=== PATIENT | female | born 1965 | race African-American/Black ===

== ENCOUNTER 2019-12-17 17:42 | Inpatient (IN) ==
[2019-12-17] MEDS ORDERED: AZITHROMYCIN INJ 500 MG in SODIUM CHLORIDE 0.9% 250 ML IV STA (18:19)
[2019-12-17] MEDS ORDERED: methylPREDNISolone SOD SUC 125 MG/2 ML VIAL IV STA (18:19)
[2019-12-17] MEDS ORDERED: ONDANSETRON 4 MG/2 ML VIAL IV STA (18:19)
[2019-12-17] MEDS ORDERED: ALBUTEROL NEB SOLN 5 MG/ML 20 ML/BOTTLE CONT NEB SCH (18:30)
[2019-12-17 18:59] LABS: ABG Base Excess 9.5 MMOL/L (-2.5-2.5); ABG HCO3 31.4 MMOL/L (20-26); ABG Oxygen Saturation 27.5 % (95-100); ABG PH 7.351 (7.35-7.45); ABG TCO2 34.4 MMOL/L (23-27)
[2019-12-17 19:00] LABS: Basophils # 0.1 10*3/uL (0.0-0.2); Basophils % 0.4 % (0.0-0.8); Eosinophils # 0.1 10*3/uL (0.0-0.87); Eosinophils % 0.4 % (0.00-10.9); Hematocrit 44.8 VOL% (35.7-47.0); Hemoglobin 14.2 GM/DL (12.0-16.0); Immature Granulocytes % 1.1 %; Immature Granulocytes Absolute 0.15 #; Lymphocytes # 1.9 10*3/uL (1.4-4.0); Lymphocytes % 13.7 % (21.3-54.2); Mean Corpuscular HGB Conc 31.7 GM/DL (32-36); Mean Corpuscular Volume 109.3 FL (87-102); Mean Platelet Volume 10.1 FL (9.6-12.0); Monocytes % 7.7 % (1.7-12.7); Neutrophils % 76.7 % (38.7-73.9); Platelet Count 232 T/CUMM (130-400); Red Cell Distribution Width 14.7 % (9.3-17.3); White Blood Count 13.8 T/CUMM (4-12)
[2019-12-17] MEDS ORDERED: cefTRIAXone 1,000 MG in SODIUM CHLORIDE 0.9% 100 ML IV STA (19:04)
[2019-12-17] MEDS ORDERED: FUROSEMIDE 40 MG/4 ML VIAL IV STA (19:04)
[2019-12-17 19:24] LABS: PT Patient Result 11.3 SECS (9.6-12.2); Partial Thromboplastin Time 23.7 SECS (20.8-36.0)
[2019-12-17 19:25] LABS: Alanine Aminotransferase 56 U/L (13-56); Albumin 3.7 G/DL (3.4-5.0); Alkaline Phosphatase 143 U/L (45-117); Aspartate Amino Transferase 90 U/L (0-37); Blood Urea Nitrogen 28 MG/DL (7-18); Calcium 9.1 MG/DL (8.5-10.1); Estimated Glom Filtration Rate 72 ML/MIN; Glucose 105 MG/DL (74-106); Osmolality,Calculated 278.8 MOS/KG (273-304); Total Protein 8.2 G/DL (6.4-8.3)
[2019-12-17 19:26] LABS: Troponin I 0.118 NG/ML (0.00-0.045)
[2019-12-17] MEDS ORDERED: ACETAMINOPHEN 325 MG TABLET PO PRN (20:29)
[2019-12-17] MEDS ORDERED: ONDANSETRON 4 MG/2 ML VIAL IV PRN (20:29)
[2019-12-17] MEDS: ENOXAPARIN 40 MG/0.4 ML SYRINGE SUBCUT SCH (22:44)
[2019-12-18 01:02] LABS: Apearance,Urine CLEAR (Clear); Bacteria,Urine Occasional /HPF (Few); Bilirubin,Urine Negative (Negative); Blood, Urine Negative (Negative); Glucose,Urine (UA) Negative (Negative); Ketones,Urine Negative (Negative); Mucus,Urine Occasional /LPF (Occasional); Nitrite,Urine Negative (Negative); Protein,Urine Negative; Squamous Epithelial Cell,Urine Occasional /HPF (0-10); Urine Color Straw (Yellow); Urine Specific Gravity 1.004 (1.001-1.035); Urine Urobilinogen < 2.0 EU/DL (0.2-1.0); WBC,Urine 2 /HPF (0-6)
[2019-12-18] MEDS: ALBUTEROL/IPRATROPIUM 3 ML NEB RESP TX SCH ×4 (01:18→20:07)
[2019-12-18 01:36] LABS: Barbiturates Screen,Urine Negative (Negative); Benzodiazepines Screen,Urine Negative (Negative); Cannabinoid Screen,Urine Negative (Negative); Opiate Screen,Urine Negative (Negative); Phencyclidine Screen,Urine Negative (Negative)
[2019-12-18] MEDS: AZITHROMYCIN INJ 500 MG in SODIUM CHLORIDE 0.9% 250 ML IV SCH ×2 (02:52→22:30)
[2019-12-18] MEDS: methylPREDNISolone SOD SUC 40 MG/1 ML VIAL IV SCH ×3 (05:43→21:30)
[2019-12-18 06:52] LABS: Basophils % 0.1 % (0.0-0.8); Eosinophils % 0.1 % (0.00-10.9); Hematocrit 42.2 VOL% (35.7-47.0); Hemoglobin 13.5 GM/DL (12.0-16.0); Immature Granulocytes % 1.2 %; Immature Granulocytes Absolute 0.15 #; Lymphocytes # 1.4 10*3/uL (1.4-4.0); Lymphocytes % 11.1 % (21.3-54.2); Mean Corpuscular Volume 107.4 FL (87-102); Mean Platelet Volume 10.6 FL (9.6-12.0); Monocytes % 2.3 % (1.7-12.7); NRBC # 0.42 10*3/uL; Neutrophils % 85.2 % (38.7-73.9); Platelet Count 217 T/CUMM (130-400); Red Blood Count 3.93 MC/CUMM (3.8-5.5); Red Cell Distribution Width 14.5 % (9.3-17.3); White Blood Count 12.5 T/CUMM (4-12)
[2019-12-18 07:09] LABS: Albumin 3.4 G/DL (3.4-5.0); Bilirubin,Total 0.8 MG/DL (0.2-1.0); Calcium 8.9 MG/DL (8.5-10.1); Osmolality,Calculated 284.8 MOS/KG (273-304); Total Protein 7.5 G/DL (6.4-8.3)
[2019-12-18 07:12] LABS: Hypochromasia 1+; Platelet Estimate Adequate
[2019-12-18 08:27] LABS: ABG Base Excess 9.3 MMOL/L (-2.5-2.5); ABG HCO3 34.4 MMOL/L (20-26); ABG Oxygen Saturation 94.7 % (95-100); ABG PCO2 48.5 MM HG (35-48); ABG PH 7.469 (7.35-7.45); ABG PO2 75.6 MM HG (80-95); ABG TCO2 35.9 MMOL/L (23-27); Allen Test Positive; Pt O2 Delivery Device CPAP
[2019-12-18] MEDS: amLODIPine 10 MG TABLET PO SCH (08:38)
[2019-12-18] MEDS: hydroCHLOROthiazide 25 MG TABLET PO SCH ×2 (08:38→15:11)
[2019-12-18] MEDS: TIMOLOL 0.5% OPH SOLN 5 ML BOTTLE BOTH EYES SCH (08:39)
[2019-12-18] MEDS: METOPROLOL SUCCINATE XL 100 MG TABLET PO SCH (08:39)
[2019-12-18] MEDS: MAGNESIUM GLUCONATE 500 MG TABLET PO SCH ×2 (08:39→21:28)
[2019-12-18] MEDS: PANTOPRAZOLE 40 MG TABLET PO SCH (08:39)
[2019-12-18] MEDS ORDERED: POTASSIUM CHLORIDE 20 MEQ TABLET PO SCH (09:00)
[2019-12-18] MEDS ORDERED: LOSARTAN 25 MG TABLET PO SCH (09:00)
[2019-12-18] MEDS: BUDESONIDE 0.5 MG/2 ML NEB RESP TX SCH ×2 (12:09→20:07)
[2019-12-18] MEDS: FUROSEMIDE 40 MG/4 ML VIAL IV SCH (12:11)
[2019-12-18] MEDS: POTASSIUM CHLORIDE 20 MEQ TABLET PO SCH (21:28)
[2019-12-18] MEDS: ATORVASTATIN 80 MG TABLET PO SCH (21:28)
[2019-12-18] MEDS: ENOXAPARIN 40 MG/0.4 ML SYRINGE SUBCUT SCH (21:29)
[2019-12-18] MEDS: cefTRIAXone 1,000 MG in SYRINGE 1 EACH IV SCH (21:29)
[2019-12-19] MEDS: ALBUTEROL/IPRATROPIUM 3 ML NEB RESP TX SCH ×4 (00:37→20:10)
[2019-12-19 04:56] LABS: Basophils % 0.1 % (0.0-0.8); Hematocrit 40.9 VOL% (35.7-47.0); Hemoglobin 13.6 GM/DL (12.0-16.0); Immature Granulocytes % 0.9 %; Immature Granulocytes Absolute 0.13 #; Lymphocytes # 0.9 10*3/uL (1.4-4.0); Mean Corpuscular HGB Conc 33.3 GM/DL (32-36); Mean Corpuscular Volume 104.3 FL (87-102); Mean Platelet Volume 10.4 FL (9.6-12.0); NRBC # 0.22 10*3/uL; Platelet Count 249 T/CUMM (130-400); Red Blood Count 3.92 MC/CUMM (3.8-5.5); Red Cell Distribution Width 14.6 % (9.3-17.3); White Blood Count 14.5 T/CUMM (4-12)
[2019-12-19 05:13] LABS: Calcium 8.5 MG/DL (8.5-10.1); Osmolality,Calculated 285.1 MOS/KG (273-304)
[2019-12-19] MEDS: methylPREDNISolone SOD SUC 40 MG/1 ML VIAL IV SCH ×3 (06:20→21:07)
[2019-12-19] MEDS: BUDESONIDE 0.5 MG/2 ML NEB RESP TX SCH ×2 (07:29→20:10)
[2019-12-19] MEDS ORDERED: MAGNESIUM SULF RIDER 2 GM in PREMIX 1 EACH IV PRN (08:05)
[2019-12-19] MEDS ORDERED: MAGNESIUM SULF RIDER 4 GM in PREMIX 1 EACH IV PRN (08:05)
[2019-12-19] MEDS: FUROSEMIDE 40 MG/4 ML VIAL IV SCH (08:10)
[2019-12-19] MEDS: hydroCHLOROthiazide 25 MG TABLET PO SCH (08:10)
[2019-12-19] MEDS: LOSARTAN 25 MG TABLET PO SCH (08:10)
[2019-12-19] MEDS: POTASSIUM CHLORIDE 20 MEQ TABLET PO SCH ×2 (08:10→21:06)
[2019-12-19] MEDS: METOPROLOL SUCCINATE XL 100 MG TABLET PO SCH (08:11)
[2019-12-19] MEDS: TIMOLOL 0.5% OPH SOLN 5 ML BOTTLE BOTH EYES SCH (08:11)
[2019-12-19] MEDS: PANTOPRAZOLE 40 MG TABLET PO SCH (08:11)
[2019-12-19] MEDS: amLODIPine 10 MG TABLET PO SCH (08:11)
[2019-12-19] MEDS: AZITHROMYCIN 250 MG TABLET PO SCH (08:11)
[2019-12-19] MEDS: MAGNESIUM GLUCONATE 500 MG TABLET PO SCH ×2 (08:11→21:23)
[2019-12-19] MEDS: cefTRIAXone 1,000 MG in SYRINGE 1 EACH IV SCH (21:06)
[2019-12-19] MEDS: ATORVASTATIN 80 MG TABLET PO SCH (21:06)
[2019-12-19] MEDS: ENOXAPARIN 40 MG/0.4 ML SYRINGE SUBCUT SCH (21:26)
[2019-12-20] MEDS: ALBUTEROL/IPRATROPIUM 3 ML NEB RESP TX SCH ×4 (01:51→19:20)
[2019-12-20] MEDS: methylPREDNISolone SOD SUC 40 MG/1 ML VIAL IV SCH ×3 (05:38→21:10)
[2019-12-20 06:52] LABS: Basophils % 0.1 % (0.0-0.8); Hematocrit 43.5 VOL% (35.7-47.0); Hemoglobin 14.5 GM/DL (12.0-16.0); Immature Granulocytes % 0.9 %; Immature Granulocytes Absolute 0.12 #; Lymphocytes # 0.8 10*3/uL (1.4-4.0); Lymphocytes % 5.8 % (21.3-54.2); Mean Corpuscular HGB Conc 33.3 GM/DL (32-36); Mean Corpuscular Volume 103.6 FL (87-102); Mean Platelet Volume 10.6 FL (9.6-12.0); Monocytes % 5.1 % (1.7-12.7); Neutrophils % 88.1 % (38.7-73.9); Platelet Count 255 T/CUMM (130-400); Red Cell Distribution Width 14.4 % (9.3-17.3); White Blood Count 13.2 T/CUMM (4-12)
[2019-12-20] MEDS: BUDESONIDE 0.5 MG/2 ML NEB RESP TX SCH ×2 (07:11→19:20)
[2019-12-20 07:18] LABS: Calcium 8.9 MG/DL (8.5-10.1)
[2019-12-20] MEDS: MAGNESIUM GLUCONATE 500 MG TABLET PO SCH ×2 (09:29→21:10)
[2019-12-20] MEDS: POTASSIUM CHLORIDE 20 MEQ TABLET PO SCH ×2 (09:29→21:10)
[2019-12-20] MEDS: FUROSEMIDE 40 MG/4 ML VIAL IV SCH (09:29)
[2019-12-20] MEDS: PANTOPRAZOLE 40 MG TABLET PO SCH (09:30)
[2019-12-20] MEDS: AZITHROMYCIN 250 MG TABLET PO SCH (09:30)
[2019-12-20] MEDS: LOSARTAN 25 MG TABLET PO SCH (09:30)
[2019-12-20] MEDS: METOPROLOL SUCCINATE XL 100 MG TABLET PO SCH (09:31)
[2019-12-20] MEDS: TIMOLOL 0.5% OPH SOLN 5 ML BOTTLE BOTH EYES SCH (09:31)
[2019-12-20] MEDS: amLODIPine 10 MG TABLET PO SCH (09:31)
[2019-12-20] MEDS: ENOXAPARIN 40 MG/0.4 ML SYRINGE SUBCUT SCH (21:10)
[2019-12-20] MEDS: ATORVASTATIN 80 MG TABLET PO SCH (21:10)
[2019-12-20] MEDS: cefTRIAXone 1,000 MG in SYRINGE 1 EACH IV SCH (21:19)
[2019-12-21] MEDS: ALBUTEROL/IPRATROPIUM 3 ML NEB RESP TX SCH ×3 (01:05→13:55)
[2019-12-21 04:52] VITALS: BP 170/80
[2019-12-21] MEDS: methylPREDNISolone SOD SUC 40 MG/1 ML VIAL IV SCH ×2 (05:11→18:37)
[2019-12-21 06:41] LABS: Basophils % 0.1 % (0.0-0.8); Hematocrit 45.3 VOL% (35.7-47.0); Hemoglobin 14.8 GM/DL (12.0-16.0); Immature Granulocytes % 0.9 %; Immature Granulocytes Absolute 0.11 #; Lymphocytes # 0.5 10*3/uL (1.4-4.0); Lymphocytes % 4.3 % (21.3-54.2); Mean Corpuscular HGB Conc 32.7 GM/DL (32-36); Mean Corpuscular Volume 104.6 FL (87-102); Mean Platelet Volume 10.5 FL (9.6-12.0); Monocytes % 4.7 % (1.7-12.7); NRBC # 0.05 10*3/uL; Platelet Count 237 T/CUMM (130-400); Red Blood Count 4.33 MC/CUMM (3.8-5.5); Red Cell Distribution Width 14.1 % (9.3-17.3); White Blood Count 12.5 T/CUMM (4-12)
[2019-12-21 06:56] LABS: Calcium 8.7 MG/DL (8.5-10.1); Osmolality,Calculated 286.2 MOS/KG (273-304)
[2019-12-21 07:01] LABS: Lymphocytes 7 % (20-55); Nucleated Red Blood Cells 1 (0-5); Segmented Neutrophils 88 % (50-85); Total Cells Counted 100
[2019-12-21 07:02] LABS: Hypochromasia 2+; Macrocytosis Slight; Polychromasia Slight
[2019-12-21 07:03] LABS: Platelet Estimate Normal; Target Cells Slight
[2019-12-21] MEDS: BUDESONIDE 0.5 MG/2 ML NEB RESP TX SCH (07:38)
[2019-12-21] MEDS: FUROSEMIDE 40 MG/4 ML VIAL IV SCH (08:58)
[2019-12-21] MEDS: MAGNESIUM GLUCONATE 500 MG TABLET PO SCH (10:02)
[2019-12-21] MEDS: LOSARTAN 25 MG TABLET PO SCH (10:03)
[2019-12-21] MEDS: POTASSIUM CHLORIDE 20 MEQ TABLET PO SCH ×3 (10:04→18:37)
[2019-12-21] MEDS: PANTOPRAZOLE 40 MG TABLET PO SCH (10:04)
[2019-12-21] MEDS: amLODIPine 10 MG TABLET PO SCH (10:04)
[2019-12-21] MEDS: TIMOLOL 0.5% OPH SOLN 5 ML BOTTLE BOTH EYES SCH (10:04)
[2019-12-21] MEDS: AZITHROMYCIN 250 MG TABLET PO SCH (10:05)
[2019-12-21] MEDS: METOPROLOL SUCCINATE XL 100 MG TABLET PO SCH (10:05)
== END 2019-12-21 18:17 | disposition home or self-care (01) | DRG 291 ==
LOC: N.ED 17:42 → N.EDINP 20:29 → SUATTDRO 20:29 → N.ICU 21:49 → N.2E 12-19 08:47
PROVIDERS: ADMIT Internal Medicine; ATTEND Internal Medicine